=== PATIENT | female | born 1995 | race Two or more races ===

== ENCOUNTER 2016-11-29 11:20 | Emergency (ER) | payer OTHER ==
[2016-11-29] MEDS: ONDANSETRON ODT 4 MG TAB.RAPDIS PO ONE (12:00)
[2016-11-29] MEDS: IV NORMAL SALINE 1,000ML 1,000 ML IV SCH (12:17)
[2016-11-29] MEDS: ONDANSETRON PF 4 MG/2 ML VIAL. IV ONE (12:18)
[2016-11-29] MEDS: FAMOTIDINE 20 MG/2 ML VIAL IVP ONE (12:20)
[2016-11-29 12:27] LABS: BASO # 0.1 x10^3/uL (0.0-0.2); BASO % 1 % (0-3); EOS % 0 % (0-3); HEMATOCRIT 38.9 % (36.0-47.0); HEMOGLOBIN 12.5 g/dL (12.0-15.5); LYMPH # 2.5 x10^3/uL (1.0-4.8); LYMPH % 23 % (24-48); MEAN CORPUSCULAR HEMOGLOBIN 23 pg (25-35); MEAN CORPUSCULAR HGB CONC 32 g/dL (31-37); MEAN CORPUSCULAR VOLUME 72 fL (79-100); MONO # 0.7 x10^3/uL (0.0-1.1); MONO % 6 % (0-9); NEUT # 7.7 x10^3uL (1.8-7.7); NEUT % 71 % (31-73); PLATELET COUNT 378 x10^3/uL (140-400); RED BLOOD COUNT 5.39 x10^6/uL (3.50-5.40); RED CELL DISTRIBUTION WIDTH 16.9 % (11.5-14.5); WHITE BLOOD COUNT 10.9 x10^3/uL (4.0-11.0)
[2016-11-29 12:41] LABS: ALBUMIN 3.8 g/dL (3.4-5.0); ALBUMIN/GLOBULIN RATIO 0.9 (1.0-1.7); CALCIUM 9.1 mg/dL (8.5-10.1); CREATININE 0.6 mg/dL (0.6-1.0); GFR 127.5; POTASSIUM 3.5 mmol/L (3.5-5.1); TOTAL BILIRUBIN 0.4 mg/dL (0.2-1.0); TOTAL PROTEIN 7.9 g/dL (6.4-8.2)
--- NOTE | 2016-11-29 12:57 | PHYS DOC ---
General Chief Complaint: NAUSEA/VOMITING/DIARRHEA Stated Complaint: NAUSEA/DIZZINESS Time Seen by MD: 11:28 Source: patient Exam Limitations: no limitations Problems: History of Present Illness Initial Comments Pt is 21/F to ED c/o n/v. Pt states she was diagnosed last week, uncertain LMP. Pt is / monogamous, nonsmoker and taking vitamins. Pt states she has had n/v off and on past week, states this am PO intolerance with headache and dizziness when up and active. No prearrival treatment, no vaginal bleeding/ discharge, no low abdominal pain or flank pain, no contractions. 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: no pertinent TOP KNITTER history Para: 0 : 1 LMP (Females 10-50): Social History Smoker: non-smoker Alcohol: none Drugs: none Review of Systems Constitutional: denies chills, denies diaphoresis, denies fever, malaise Respiratory: denies cough, denies shortness of breath Cardiovascular: denies chest pain, denies palpitations Gastrointestinal: see HPI Genitourinary: see HPIdenies dysuria, denies frequency, denies hematuria Musculoskeletal: denies back pain, denies joint swelling, denies neck pain Psychiatric/Neurological: see HPI Hematologic/Lymphatic: denies blood clots, denies easy bleeding, denies easy bruising Physical Exam General Appearance: WD/WN, no apparent distress Eyes: bilateral eye EOMI, bilateral eye PERRL, bilateral eye normal inspection Ear, Nose, Throat: hearing grossly normal, normal ENT inspection (mildly dry membranes), normal pharynx Neck: non-tender, supple Respiratory: normal breath sounds, no respiratory distress Cardiovascular: normal peripheral pulses, regular rate, rhythm Gastrointestinal: soft (diffusely TTP no r/g/mass, BS nl) Rectal: deferred Back: no CVA tenderness, no vertebral tenderness Extremities: non-tender, normal inspection, no pedal edema Neurologic/Psychiatric: skin washer II-XII nml as tested, no motor/sensory deficits, alert, normal mood/affect, oriented x 3 Skin: normal color, warm/dry Orders, Labs, Meds reassuring workup in ED N/V resolved with zofran, feels much better with 1L NS IV. She expressed agreement/understanding with treatment plan. Departure Time of Disposition: 13:09 Disposition: 01 HOME, SELF-CARE Diagnosis: Hyperemesis Gravidarium Condition: IMPROVED Patient Instructions: ABCs of , Diet - Hyperemesis Gravidarum, Hyperemesis Gravidarum, Medicines During Additional Instructions: Please review the patient education materials given to you by ED staff. Aggressive hydration with gatorade, water. OTC pepcid as needed. Continue vitamins. Work excuse today. Rx: zofran odt Follow up with your doctor next week. Return to ED with new or changing symptoms. SUSAN SALDIVAR DO Nov 29, 2016 12:57
[2016-11-29] MEDS ORDERED: ONDA4TAB10 PO (13:13)
[2016-11-29 13:32] VITALS: BP 126/68
[2016-11-29 14:11] LABS: BILIRUBIN,URINE NEG (NEG); CLARITY,URINE CLEAR; COLOR,URINE YELLOW; GLUCOSE,URINE NEG (NEG); NITRITE,URINE NEG (NEG); UROBILINOGEN,URINE 0.2 mg/dL (0.2 mg/dL)
== END 2016-11-29 13:38 | disposition home or self-care (01) ==
LOC: ER 11:20
DX: O21.0 Mild hyperemesis gravidarum (principal); J45.909 Unspecified asthma, uncomplicated; Z3A.00 Weeks of gestation of pregnancy not specified
CPT/HCPCS: 36415; 80053; 81003; 83690; 84702; 85027; 96361; 96374; 96375; 99284; J2405; S0028; J7030

== ENCOUNTER 2016-12-01 13:04 | Emergency (ER) | payer OTHER ==
[~2016-12-01 13:04] MED LIST: ONDA4TAB10 PO
[2016-12-01 13:05] VITALS: BP 117/73
--- NOTE | 2016-12-01 14:20 | ED.ADGEN ---
Past History Past Medical History: Asthma, Other Past Surgical History: Appendectomy Alcohol Use: None Drug Use: None Adult General HPI HPI Patient is a 21-year-old female presents emergency department complaining of diffuse abdominal pain and is been intermittent. She describes it as an "ache " and has been ongoing for at least several days. She believes that her last menstrual period was August 30. She has not had a visit with her OB doctor yet. She was seen here 2 days ago for nausea and vomiting. She has taken Tylenol for pain but reports is not doing anything. The Zofran she received has helped with her nausea and vomiting. Review of Systems Review of Systems Constitutional: Denies fever or chills [] Eyes: Denies change in visual acuity, redness, or eye pain [] HENT: Denies nasal congestion or sore throat [] Respiratory: Denies cough or shortness of breath [] Cardiovascular: No additional information not addressed in HPI [] GI: Denies abdominal pain, nausea, vomiting, bloody stools or diarrhea [] : Denies dysuria or hematuria [] Musculoskeletal: Denies back pain or joint pain [] Integument: Denies rash or skin lesions [] Neurologic: Denies headache, focal weakness or sensory changes [] Endocrine: Denies polyuria or polydipsia [] Allergies Allergies Allergies Coded Allergies Type Severity Reaction Last Updated Verified No Known Drug Allergies 11/29/16 No Physical Exam Physical Exam Constitutional: Well developed, well nourished, no acute distress, non-toxic appearance. [] HENT: Normocephalic, atraumatic, bilateral external ears normal, oropharynx moist, no oral exudates, nose normal. [] Eyes: PERRLA, EOMI, conjunctiva normal, no discharge. [] Neck: Normal range of motion, no tenderness, supple, no stridor. [] Cardiovascular:Heart rate regular rhythm, no murmur [] Lungs & Thorax: Bilateral breath sounds clear to auscultation [] Abdomen: Bowel sounds normal, soft, no tenderness, no masses, no pulsatile masses. [] Skin: Warm, dry, no erythema, no rash. [] Back: No tenderness, no CVA tenderness. [] Extremities: No tenderness, no cyanosis, no clubbing, ROM intact, no edema. [] Neurologic: Alert and oriented X 3, normal motor function, normal sensory function, no focal deficits noted. [] Psychologic: Affect normal, judgement normal, mood normal. [] Current Patient Data Vital Signs Vital Signs Date Time Temp Pulse Resp B/P Pulse Ox O2 Delivery O2 Flow Rate FiO2 12/01/16 13:05 99.0 12 20 98 Room Air EKG EKG [] Radiology/Procedures Radiology/Procedures Indication . Intermittent abdominal pain. Early obstetrical ultrasound examination was performed. No prior imaging is available. Initially transabdominal scans were obtained. Initial transabdominal scans were supplemented with transvaginal scans. The uterus measures approximately 8.5 x 8 x 6.2 cm. There is a single, viable, IUP. heart rate 159 was documented. The crown-rump length of 2.9 cm is compatible with a gestational age of approximately 19 weeks 5 days. By sonographic analysis the expected date of confinement is 07/01/2017. Both ovaries are identified and appear unremarkable IMPRESSION: Single, viable, IUP of approximately 9 weeks 5 days gestation DICTATED AND SIGNED BY: YARY MARTINEZ MD DATE: 12/01/16 1538 CC: BELEN RUIZ; DICK QUINTANA MD ~[] Course & Med Decision Making Course & Med Decision Making Pertinent Labs and Imaging studies reviewed. (See chart for details) Reassuring workup here in emergency department today. Patient was instructed to continue with her Zofran and Pepcid. She is to follow-up with her OB doctor as scheduled in 4 days. She will of course return emergency department sooner she develops new or worsening symptoms. [] Final Impression Final Impression Abdominal pain in [] Problems: Dragon Disclaimer Dragon Disclaimer This electronic medical record was generated, in whole or in part, using a voice recognition dictation system. DICK QUINTANA MD Dec 01, 2016 14:20
--- NOTE | 2016-12-01 15:42 | RAD ---
Indication . Intermittent abdominal pain. Early obstetrical ultrasound examination was performed. No prior imaging is available. Initially transabdominal scans were obtained. Initial transabdominal scans were supplemented with transvaginal scans. The uterus measures approximately 8.5 x 8 x 6.2 cm. There is a single, viable, IUP. heart rate 159 was documented. The crown-rump length of 2.9 cm is compatible with a gestational age of approximately 19 weeks 5 days. By sonographic analysis the expected date of confinement is 07/01/2017. Both ovaries are identified and appear unremarkable IMPRESSION: Single, viable, IUP of approximately 9 weeks 5 days gestation
== END 2016-12-01 16:00 | disposition home or self-care (01) ==
LOC: ER 13:04
DX: O26.891 Other specified pregnancy related conditions, first trimester (principal); R10.84 Generalized abdominal pain; J45.909 Unspecified asthma, uncomplicated; Z3A.09 9 weeks gestation of pregnancy
CPT/HCPCS: 76801; 76817; 99284-25

== ENCOUNTER 2016-12-21 12:44 | Emergency (ER) | payer OTHER ==
[~2016-12-21] VITALS: Ht 160 cm; Wt 80.3 kg
[2016-12-21] MEDS ORDERED: IV NORMAL SALINE 1,000ML 1,000 ML IV SCH ×2 (13:31→14:18)
[2016-12-21] MEDS ORDERED: ONDANSETRON PF 4 MG/2 ML VIAL. IV ONE (13:45)
[2016-12-21] MEDS ORDERED: FAMOTIDINE 20 MG/2 ML VIAL IVP ONE (13:45)
--- NOTE | 2016-12-21 13:45 | PHYS DOC ---
General Chief Complaint: ABDOMINAL PAIN IN Stated Complaint: ABD PAIN Time Seen by MD: 13:03 Source: patient, old records Exam Limitations: no limitations Problems: History of Present Illness Initial Comments Pt is 21/F to ED c/o abdominal pain. Pt is , LMP 08/30 12 wks gestation c/o abdominal pain. She states that this morning she had some emesis (has rx for zofran hyperemesis gravidarium) and developed abdominal pain. Pain located anterior abdomen from epigastrium to suprapubic, worse with activation of abdominal muscles improved with rest. No focality of pain or relation to type/timing of PO intake. Sx described as severe/achy, but improving here in ED. Pt had normal US here 12/01 (pt seen here 11/30 hyperemesis, 12/01 abd pain) and saw her [employer] Dr Rivka Boone in [place], [place] yesterday. Taking prenatals, no tobacco, no vaginal discharge/ bleeding/flank pain/urinary sx/fever/chills/trauma/travel/bad food exposure. No diarrhea/constipation. Pt is requesting pain medication. FHT 154 in ED. ED VS: 98.6, 83, 120/66, 98% RA Pt abdominal exam wnl (see PE documentation), normal VS and FHT. I advised pt that no opiates would be prescribed, tylenol offered. No indication for US, I advised pt we could check UA/CBC/CMP to r/o severe infection/electrolyte abnormality/HELPP, and IVF could be administered. Pt appeared upset, but did agree to stay. 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 SENIOR PHARMACY TECHNICIAN history Para: 0 : 1 LMP (Females 10-50): (LMP 08/30 estimated 12 wks gestation) Social History Smoker: non-smoker Alcohol: none Drugs: none Review of Systems Constitutional: denies chills, denies diaphoresis, denies fever, denies malaise Respiratory: denies cough, denies shortness of breath, denies wheezing Cardiovascular: denies chest pain, denies edema, denies palpitations, denies syncope Gastrointestinal: see HPI abdominal paindenies constipation, denies diarrhea, nausea vomiting Genitourinary: denies dysuria, denies frequency, denies hematuria Musculoskeletal: denies back pain, denies joint swelling, denies neck pain Psychiatric/Neurological: denies headache, denies numbness, denies paresthesia Hematologic/Lymphatic: denies blood clots, denies easy bleeding, denies easy bruising Physical Exam General Appearance: WD/WN, no apparent distress Eyes: bilateral eye EOMI, bilateral eye PERRL, bilateral eye normal inspection Ear, Nose, Throat: hearing grossly normal, normal ENT inspection (mildly dry membranes), normal pharynx Neck: non-tender, supple Respiratory: normal breath sounds, no respiratory distress Cardiovascular: normal peripheral pulses, regular rate, rhythm Gastrointestinal: soft (gravid consistent with dates, soft, nontender BS normal ) Rectal: deferred Back: no CVA tenderness, no vertebral tenderness Extremities: non-tender, normal inspection, no pedal edema Neurologic/Psychiatric: chairman ceo II-XII nml as tested, no motor/sensory deficits, alert, normal mood/affect, oriented x 3 Skin: normal color, warm/dry Orders, Labs, Meds Mild leukocytosis otherwise labs unremarkable. 1513: Time in department greater than two hours, pt just submitted urine specimen. Pt has prolonged ED course due to laboratory delay. 1607: UA now resulted, no acute infection +SE contamination/ketones Departure Time of Disposition: 16:02 Disposition: 01 HOME, SELF-CARE Diagnosis: abdominal pain in Condition: GOOD Patient Instructions: Abdominal Pain During , [id number], Medicines During Additional Instructions: Aggressive hydration with gatorade, water. Continue vitamins. See handout re: safe OTC medications during . OTC tylenol/pepcid as needed. Follow up with Dr Boone as scheduled. Call her office first with new nonemergent complaints for guidance. Return to ED with new or changing symptoms. SUSAN SALDIVAR DO Dec 21, 2016 13:45
[2016-12-21 13:47] LABS: BASO % 0 % (0-3); EOS % 0 % (0-3); HEMATOCRIT 38.2 % (36.0-47.0); HEMOGLOBIN 12.1 g/dL (12.0-15.5); LYMPH # 1.7 x10^3/uL (1.0-4.8); LYMPH % 11 % (24-48); MEAN CORPUSCULAR HEMOGLOBIN 23 pg (25-35); MEAN CORPUSCULAR HGB CONC 32 g/dL (31-37); MEAN CORPUSCULAR VOLUME 73 fL (79-100); MONO # 0.7 x10^3/uL (0.0-1.1); MONO % 4 % (0-9); NEUT # 12.8 x10^3uL (1.8-7.7); NEUT % 84 % (31-73); PLATELET COUNT 309 x10^3/uL (140-400); RED BLOOD COUNT 5.21 x10^6/uL (3.50-5.40); RED CELL DISTRIBUTION WIDTH 17.4 % (11.5-14.5); WHITE BLOOD COUNT 15.1 x10^3/uL (4.0-11.0)
[2016-12-21] MEDS ORDERED: ACETAMINOPHEN 500 MG TABLET PO ONE (14:00)
[2016-12-21 14:01] LABS: ALBUMIN 3.3 g/dL (3.4-5.0); ALBUMIN/GLOBULIN RATIO 0.9 (1.0-1.7); CALCIUM 8.9 mg/dL (8.5-10.1); CREATININE 0.5 mg/dL (0.6-1.0); GFR 157.3; TOTAL BILIRUBIN 0.3 mg/dL (0.2-1.0); TOTAL PROTEIN 7.1 g/dL (6.4-8.2)
[2016-12-21 14:39] LABS: % BANDS 0 % (0-9); % BASOS 0 % (0-3); % EOS 1 % (0-5); % LYMPHS 14 % (24-48); % MONOS 4 % (0-10); % SEGS 81 % (35-66); ANISOCYTOSIS PRESENT; HYPOCHROMIA PRESENT; MICROCYTOSIS PRESENT; PLT ESTIMATE ADEQUATE (ADEQUATE)
[2016-12-21 14:40] LABS: TOXIC VACUOLATION PRESENT
--- NOTE | 2016-12-21 15:19 | ACF ---
Admission Criteria Forms ABDOMINAL PAIN Clinical Indications for Admission to Inpatient Care (Place 'X' for any and all applicable criteria): Admission is indicated for ANY ONE of the following(1)(2)(3)(4)(5): [x]I. Inpatient admission required rather than observation care (Also use Abdominal Pain: Observation Care, as appropriate) because of ANY ONE of the following: [ ]a) Severe pain requiring acute inpatient management [x]b) Identification of etiology/finding that requires inpatient care (eg, aortic dissection, free air) [ ]c) Absent bowel sounds with complete ileus(6) [ ]d) Suspected toxic megacolon [ ]e) Severe electrolyte abnormalities requiring inpatient care [ ]f) High fever or infection requiring inpatient admission as indicated by ANY ONE of following(7)(8): [ ] i) Appropriate outpatient or observational care antimicrobial treatment unavailable, not effective, or not feasible [ ] ii) Documented bacteremia [ ] iii) Temperature > 104.9 degrees F (oral) [ ] iv) T >103.1 F (oral) or < 96.8 F(rectal) that does not respond to all emergency treatment measures [ ]g) Signs of intestinal obstruction [B] [ ]h) Hemodynamic instability [ ]i) IV fluid to replace significant ongoing losses (greater than 3 L/m2 per day) (12)(13) [ ]j) Percutaneous or open drainage (eg, abscess, biliary tract ) procedures [ ]k) Parenteral nutrition regimen that must be implemented on inpatient basis [ ]l) Other condition,treatment or monitoring requiring inpatient admission. [ ]II. Peritoneal signs present [ ]III. Surgery needed that cannot be performed on an ambulatory basis. [ ]IV. Evaluation requires patient to not eat or drink for extended period ( eg, more than 24 hours). [ ]V. Contraindications and/or Inappropriate clinical situations for Observational Care in patients with abdominal pain, when ANY ONE of the following is required: [ ]a) Thorough evaluation is required to prevent catastrophic events due to delays in diagnosing (e.g.Mesenteric ischemia) 1,3 [ ]b) Patient with severe pathology or with chronic symptoms unlikely to improve in the ED stay (3) [ ]. General contraindications and/or Inappropriate clinical situations for Observational Care in patients with abdominal pain, when ANY ONE of the following is required: [ ]a) Prediction of prolongation of LOS based on ANY ONE of the following may be considered as a contraindication for observational care 2, 3, 4, 5, 6, 7, 8, 9, 10, 11 [ ]i) Age > 65 yrs. [ ]ii) Patient arriving by ambulance [ ]iii) Patient with high acuity [ ]iv) Patient requiring vital sign monitoring [ ]v) Patient on IV medication [ ]b) Systolic blood pressures 180mmHg 3,12 [ ]c) Patient with altered mental status including delirium and other alteration of consciousness, (3) [ ]d) Patient whose discharge disposition will be to a longterm home or rehabilitation home should not be managed in Emergency Department Observation Unit. CMS rule requires 3 days hospital stay before such placement.3,13 [ ]e) Patient with failure to thrive due to broad array of etiologies 3,16,17 [ ]f) Inability to ambulate 3,14 Extended stay beyond goal length of stay may be needed for(2)(3): [ ]a) Persistent abdominal pain with suspected intra-abdominal process [ ]b) Diagnosed condition requiring continued stay (e.g., pancreatitis, complicated diverticulitis) [ ]c) Surgery (e.g., colectomy) The original [id number] content created by [employer] has been revised. The portions of the content which have been revised are identified through the use of italic text or in bold, and [facility] has neither reviewed nor approved the modified material.All other unmodified content is copyright [id number]. Please see references footnoted in the original [id number] edition 2016 Admission Criteria Met?: Yes JAYY MADSEN Dec 21, 2016 15:19
[2016-12-21 16:02] LABS: BACTERIA,URINE FEW /HPF (0-FEW); BILIRUBIN,URINE NEG (NEG); CLARITY,URINE HAZY; COLOR,URINE YELLOW; GLUCOSE,URINE NEG (NEG); NITRITE,URINE NEG (NEG); RBC,URINE OCC /HPF (0-2); SQUAMOUS EPITHELIAL CELL,UR MOD /LPF; UROBILINOGEN,URINE 1 mg/dL (0.2 mg/dL)
[2016-12-21 16:04] LABS: HYALINE CASTS, URINE FEW /HPF
[2016-12-21 16:27] VITALS: BP 118/51
== END 2016-12-21 16:30 | disposition home or self-care (01) ==
LOC: ER 12:44
DX: O26.891 Other specified pregnancy related conditions, first trimester (principal); R10.13 Epigastric pain; O21.9 Vomiting of pregnancy, unspecified; J45.909 Unspecified asthma, uncomplicated; Z90.49 Acquired absence of other specified parts of digestive tract; Z3A.12 12 weeks gestation of pregnancy
CPT/HCPCS: 36415; 80053; 81001; 83690; 85007; 85027; 87086; 96361; 96374; 96375; 99285; J2405; S0028; J7030

== ENCOUNTER 2017-04-14 18:31 | Emergency (ER) | payer OTHER ==
[~2017-04-14] VITALS: Ht 160 cm; Wt 84.2 kg
[2017-04-14 18:40] VITALS: BP 122/72
[2017-04-14] MEDS ORDERED: CEPH-264 PO (18:56)
[2017-04-14] MEDS ORDERED: ACET325T9 PO (18:56)
--- NOTE | 2017-04-14 18:57 | PHYS DOC ---
Past History Past Medical History: Asthma, Other Past Surgical History: Appendectomy Alcohol Use: None Drug Use: None Adult General Chief Complaint Chief Complaint: ear infection HPI HPI Patient is a pleasant 21-year-old female who is approximately 29 weeks by LMP who presents with a redness and localized swelling to the external pinna of the left ear. She noted she not felt well slight mild headache on that left side of her face here with localized redness swelling to the location of her prior ear ring placement point. Her fever is only been up to 99.9 she describes the pain as achy in her ear. She denies any drainage denies any trauma to the ear. Symptoms all began she noticed earlier in the day. Pain is worsened with direct pressure over the ear and movement of the ear. Addict is described as throbbing or spicy foods on onset with no neck stiffness or hearing loss. Review of Systems Review of Systems Constitutional: Subjective fevers and chills. Eyes: Denies change in visual acuity, redness, or eye pain [] HENT: Denies nasal congestion or sore throat [] Respiratory: Denies cough or shortness of breath [] Cardiovascular: No additional information not addressed in HPI [] GI: Denies abdominal pain, nausea, vomiting, bloody stools or diarrhea [] : Denies dysuria or hematuria [] Musculoskeletal: Denies back pain or joint pain [] Integument: Denies rash or skin lesions [] Neurologic: Mild throbbing headache on the left. No focal weakness or sensory changes. Endocrine: Denies polyuria or polydipsia [] Current Medications Current Medications Current Medications Medications (Trade) Dose Ordered Sig/[facility] Start Time Stop Time Status Last Admin Dose Admin Acetaminophen (Tylenol) 650 mg 1X ONCE 04/14/17 19:00 04/14/17 19:01 UNV Cephalexin HCl (Keflex) 500 mg 1X ONCE 04/14/17 19:00 04/14/17 19:01 UNV Allergies Allergies Allergies Coded Allergies Type Severity Reaction Last Updated Verified No Known Drug Allergies 11/29/16 No Physical Exam Physical Exam Patient's vital signs recorded on the chart within normal limits afebrile at this time at 98.1. Constitutional: Well developed, well nourished, no acute distress, non-toxic appearance. [] HENT: Normocephalic, atraumatic, oropharynx moist, no oral exudates, nose normal. Left ear lower pinna has a area of erythema without drainage minimal induration and soft tissue swelling. It is all on the point of the earring hole. [] Eyes: PERRLA, EOMI, conjunctiva normal, no discharge. [] Neck: Normal range of motion, no tenderness, supple, no stridor. [] Skin: Warm, dry, no erythema, no rash. [] Neurologic: Alert and oriented X 3 Psychologic: Affect normal, judgement normal, mood normal. [] EKG EKG [] Radiology/Procedures Radiology/Procedures [] Course & Med Decision Making Course & Med Decision Making Pertinent Labs and Imaging studies reviewed. (See chart for details) She presents 29 weeks with no complaints of the presents with a low-grade fever to 99.9 at home with a small cellulitis located of the left earlobe. There is duration with soft tissue swelling patient has no fluctuance there is no active evidence of abscess. There is no drainage from the wound itself. Given a dose of Keflex and Tylenol here in the emergency department and we'll be provided such treatment at discharge. [] Dragon Disclaimer Dragon Disclaimer This chart was dictated in whole or in part using Voice Recognition software in a busy, high-work load, and often noisy Emergency Department environment. It may contain unintended and wholly unrecognized errors or omissions. Departure Departure: Impression: Primary Impression: Cellulitis Disposition: 01 HOME, SELF-CARE Condition: STABLE Referrals: BELEN RUIZ (PCP) Patient Instructions: Cellulitis Additional Instructions: Please return for any new or increasing symptoms, fever greater than 102.2 despite treatment or if you have any questions or concerns. Scripts Acetaminophen (TYLENOL) 325 Mg Tablet 1-2 TAB PO QID, #30 TAB 2 Refills Prov: MARISA PRUITT MD 04/14/17 Cephalexin (KEFLEX) 500 Mg Capsule 500 MG PO QID for 10 Days, #40 CAP Prov: MARISA PRUITT MD 04/14/17 MARISA PRUITT MD Apr 14, 2017 18:56
[2017-04-14] MEDS ORDERED: ACETAMINOPHEN 325 MG TABLET PO ONE (19:15)
[2017-04-14] MEDS ORDERED: CEPHALEXIN 250 MG CAPSULE PO ONE (19:15)
== END 2017-04-14 19:20 | disposition home or self-care (01) ==
LOC: ER 18:31
DX: O26.893 Other specified pregnancy related conditions, third trimester (principal); H60.12 Cellulitis of left external ear; R51 Headache; O99.513 Diseases of the respiratory system complicating pregnancy, third trimester; J45.909 Unspecified asthma, uncomplicated; Z3A.29 29 weeks gestation of pregnancy
CPT/HCPCS: 99283

== ENCOUNTER 2017-08-15 21:05 | Emergency (ER) | payer OTHER ==
[~2017-08-15] VITALS: Ht 160 cm; Wt 81.6 kg
[~2017-08-15 21:05] MED LIST changes: +ACET325T9 PO; +CEPH-264 PO
[2017-08-15] MEDS ORDERED: IV NORMAL SALINE 1,000ML 1,000 ML IV ONE (22:15)
[2017-08-15] MEDS ORDERED: ONDANSETRON PF 4 MG/2 ML VIAL. IV ONE (22:30)
[2017-08-15] MEDS ORDERED: IOHEXOL 300 MG/ML 75 ML VIAL. IV ONE (22:30)
[2017-08-15 23:06] LABS: BASO % 0 % (0-3); EOS % 0 % (0-3); HEMATOCRIT 36.5 % (36.0-47.0); HEMOGLOBIN 11.6 g/dL (12.0-15.5); LYMPH % 23 % (24-48); MEAN CORPUSCULAR HEMOGLOBIN 22 pg (25-35); MEAN CORPUSCULAR HGB CONC 32 g/dL (31-37); MEAN CORPUSCULAR VOLUME 69 fL (79-100); MONO # 0.9 x10^3/uL (0.0-1.1); MONO % 7 % (0-9); NEUT % 70 % (31-73); PLATELET COUNT 385 x10^3/uL (140-400); RED BLOOD COUNT 5.27 x10^6/uL (3.50-5.40); RED CELL DISTRIBUTION WIDTH 19.3 % (11.5-14.5)
[2017-08-15 23:19] LABS: ALBUMIN 3.5 g/dL (3.4-5.0); CALCIUM 8.4 mg/dL (8.5-10.1); CREATININE 0.8 mg/dL (0.6-1.0); GFR 91.4; MAGNESIUM 1.9 mg/dL (1.8-2.4); POTASSIUM 3.2 mmol/L (3.5-5.1); TOTAL BILIRUBIN 0.4 mg/dL (0.2-1.0)
[2017-08-15 23:28] LABS: ANISOCYTOSIS SLIGHT; HYPOCHROMIA SLIGHT; MICROCYTOSIS MOD; PLT ESTIMATE ADEQUATE (ADEQUATE)
--- NOTE | 2017-08-15 23:39 | RAD ---
CT SCAN OF THE ABDOMEN AND PELVIS WITH IV CONTRAST. History: Left lower quadrant abdominal pain and nausea for 2 days and history of prior appendectomy and ulcerative colitis Comparison:None. Procedure: Contiguous axial images of the abdomen and pelvis were performed after the administration of 75 cc of Omni 300 IV contrast and without oral contrast. CT Abdomen with contrast: Findings: Liver: Unremarkable Spleen: Unremarkable Pancreas: Unremarkable Adrenal Glands: Unremarkable Kidneys: Unremarkable There are numerous small mesenteric lymph nodes bilaterally and there are a few mildly enlarged mesenteric lymph nodes in the right lower quadrant. There is no free air. There is no free fluid. The uterus is retroflexed. The endometrium measures 2.4 cm in thickness. There is evidence of prior appendectomy. Impression: 1. Mild mesenteric lymphadenopathy could be lymphadenitis. 2. Thickening of the endometrium of the uterus is nonspecific and likely incidental. End Impression CT Pelvis with Contrast: Findings: The urinary bladder appears normal. There is no free fluid. There is no lymphadenopathy. Impression: No acute findings. PQRS Compliance Statement: One or more of the following individualized dose reduction techniques were utilized for this examination: 1. Automated exposure control 2. Adjustment of the mA and/or kV according to patient size 3. Use of iterative reconstruction technique Electronically signed by: Isaac Martines III, MD (08/15/2017 11:36 PM) [facility]
[2017-08-16 00:26] LABS: BACTERIA,URINE 0 /HPF (0-FEW); BILIRUBIN,URINE NEG (NEG); CLARITY,URINE CLEAR; COLOR,URINE YELLOW; GLUCOSE,URINE NEG (NEG); NITRITE,URINE NEG (NEG); RBC,URINE 0 /HPF (0-2); SQUAMOUS EPITHELIAL CELL,UR MOD /LPF; UROBILINOGEN,URINE 0.2 mg/dL (0.2 mg/dL); WBC,URINE OCC /HPF (0-4)
[2017-08-16] MEDS ORDERED: POTASSIUM CHLORIDE 20 MEQ TABLET.ER. PO ONE (00:30)
[2017-08-16] MEDS ORDERED: KETOROLAC 30 MG/ML VIAL. IV ONE (00:30)
[2017-08-16] MEDS ORDERED: oxyCODONE/APAP 5/325 1 TAB TABLET PO ONE (00:30)
[2017-08-16] MEDS ORDERED: HYDR-971 PO (01:55)
[2017-08-16] MEDS ORDERED: ONDA4TAB10 SL (01:55)
--- NOTE | 2017-08-16 01:55 | PHYS DOC ---
Past History Past Medical History: Asthma, Depression Past Surgical History: Appendectomy Alcohol Use: None Drug Use: None Adult General Chief Complaint Chief Complaint: ABDOMINAL PAIN HPI HPI Patient is a 21-year-old female presenting to the emergency department for violation of generalized abdominal pain nausea and headache. Abdominal pain started today and is constant crampy and associated with nausea and no fevers chills vomiting diarrhea constipation dysuria hematuria or abnormal bleeding or discharge. Patient says that the headache is mostly frontal and started after the abdominal pain and headache and said that is mild compared to the abdominal pain. She is healthy takes no medications and denies any abdominal surgeries. Review of Systems Review of Systems Constitutional: Denies fever or chills [] Respiratory: Denies cough or shortness of breath [] Cardiovascular: No additional information not addressed in HPI [] GI: + abdominal pain, nausea. No vomiting, bloody stools or diarrhea [] : Denies dysuria or hematuria [] Musculoskeletal: Denies back pain or joint pain [] Integument: Denies rash or skin lesions [] Neurologic: + headache. No focal weakness or sensory changes [] All other systems were reviewed and found to be within normal limits, except as documented in this note. Current Medications Current Medications Current Medications Medications (Trade) Dose Ordered Sig/Silva Start Time Stop Time Status Last Admin Dose Admin Fentanyl Citrate (Fentanyl 2ml Vial) 75 mcg 1X ONCE 08/15/17 22:30 08/15/17 22:31 DC 08/15/17 22:45 75 MCG Iohexol (Omnipaque 300 Mg/ml) 75 ml 1X ONCE 08/15/17 22:30 08/15/17 22:31 DC 08/15/17 22:56 75 ML Ketorolac Tromethamine (Toradol) 30 mg 1X ONCE 08/16/17 00:30 08/16/17 01:17 DC 08/16/17 00:53 30 MG Ondansetron HCl (Zofran) 8 mg 1X ONCE 08/15/17 22:30 08/15/17 22:31 DC 08/15/17 22:30 8 MG Oxycodone/ Acetaminophen (Percocet 5/325) 2 tab 1X ONCE 08/16/17 00:30 08/16/17 01:17 DC 08/16/17 00:52 2 TAB Potassium Chloride (Klor-Con) 40 meq 1X ONCE 08/16/17 00:30 08/16/17 01:17 DC 08/16/17 00:51 40 MEQ Sodium Chloride 1,000 ml @ 1,000 mls/hr 1X ONCE 08/15/17 22:15 08/15/17 23:14 DC 08/15/17 22:30 1,000 MLS/HR Allergies Allergies Allergies Coded Allergies Type Severity Reaction Last Updated Verified No Known Drug Allergies 08/15/17 No Physical Exam Physical Exam Constitutional: Well developed, well nourished, no acute distress, non-toxic appearance. [] Cardiovascular:Heart rate regular rhythm, no murmur [] Lungs & Thorax: Bilateral breath sounds clear to auscultation [] Abdomen: Bowel sounds normal, soft, mild diffuse nonfocal tenderness, no rebound or guarding, no masses, no pulsatile masses. [] Skin: Warm, dry, no erythema, no rash. [] Back: No tenderness, no CVA tenderness. [] Extremities: No tenderness, no cyanosis, no clubbing, ROM intact, no edema. [] Neurologic: Alert and oriented X 3, normal motor function, normal sensory function, no focal deficits noted. [] Current Patient Data Vital Signs Vital Signs Date Time Temp Pulse Resp B/P (MAP) Pulse Ox O2 Delivery O2 Flow Rate FiO2 08/15/17 22:00 98.1 99 20 Room Air Lab Results Laboratory Tests Test 08/15/17 22:43 08/15/17 23:59 White Blood Count 13.0 x10^3/uL (4.0-11.0) H Red Blood Count 5.27 x10^6/uL (3.50-5.40) Hemoglobin 11.6 g/dL (12.0-15.5) L Hematocrit 36.5 % (36.0-47.0) Mean Corpuscular Volume 69 fL (79-100) L Mean Corpuscular Hemoglobin 22 pg (25-35) L Mean Corpuscular Hemoglobin Concent 32 g/dL (31-37) Red Cell Distribution Width 19.3 % (11.5-14.5) H Platelet Count 385 x10^3/uL (140-400) Neutrophils (%) (Auto) 70 % (31-73) Lymphocytes (%) (Auto) 23 % (24-48) L Monocytes (%) (Auto) 7 % (0-9) Eosinophils (%) (Auto) 0 % (0-3) Basophils (%) (Auto) 0 % (0-3) Neutrophils # (Auto) 9.0 x10^3uL (1.8-7.7) H Lymphocytes # (Auto) 3.0 x10^3/uL (1.0-4.8) Monocytes # (Auto) 0.9 x10^3/uL (0.0-1.1) Eosinophils # (Auto) 0.0 x10^3/uL (0.0-0.7) Basophils # (Auto) 0.0 x10^3/uL (0.0-0.2) Platelet Estimate Adequate (ADEQUATE) Hypochromasia Slight Anisocytosis Slight Microcytosis Mod Sodium Level 140 mmol/L (136-145) Potassium Level 3.2 mmol/L (3.5-5.1) L Chloride Level 104 mmol/L (98-107) Carbon Dioxide Level 24 mmol/L (21-32) Anion Gap 12 (6-14) Blood Urea Nitrogen 11 mg/dL (7-20) Creatinine 0.8 mg/dL (0.6-1.0) Estimated GFR (Cockcroft-Gault) 91.4 BUN/Creatinine Ratio 14 (6-20) Glucose Level 88 mg/dL (70-99) Calcium Level 8.4 mg/dL (8.5-10.1) L Magnesium Level 1.9 mg/dL (1.8-2.4) Total Bilirubin 0.4 mg/dL (0.2-1.0) Aspartate Amino Transferase (AST) 18 U/L (15-37) Alanine Aminotransferase (ALT) 33 U/L (14-59) Alkaline Phosphatase 113 U/L (46-116) Total Protein 7.0 g/dL (6.4-8.2) Albumin 3.5 g/dL (3.4-5.0) Albumin/Globulin Ratio 1.0 (1.0-1.7) Lipase 110 U/L (73-393) Urine Collection Type Unknown Urine Color Yellow Urine Clarity Clear Urine pH 5.0 Urine Specific [place] <=1.005 Urine Protein Neg (NEG-TRACE) Urine Glucose (UA) Neg mg/dL (NEG) Urine Ketones (Stick) Neg mg/dL (NEG) Urine Blood Neg (NEG) Urine Nitrite Neg (NEG) Urine Bilirubin Neg (NEG) Urine Urobilinogen Dipstick 0.2 mg/dL (0.2 mg/dL) Urine Leukocyte Esterase Neg (NEG) Urine RBC 0 /HPF (0-2) Urine WBC Occ /HPF (0-4) Urine Squamous Epithelial Cells Mod /LPF Urine Bacteria 0 /HPF (0-FEW) EKG EKG [] Radiology/Procedures Radiology/Procedures CT SCAN OF THE ABDOMEN AND PELVIS WITH IV CONTRAST. History: Left lower quadrant abdominal pain and nausea for 2 days and history of prior appendectomy and ulcerative colitis Comparison:None. Procedure: Contiguous axial images of the abdomen and pelvis were performed after the administration of 75 cc of Omni 300 IV contrast and without oral contrast. CT Abdomen with contrast: Findings: Liver: Unremarkable Spleen: Unremarkable Pancreas: Unremarkable Adrenal Glands: Unremarkable Kidneys: Unremarkable There are numerous small mesenteric lymph nodes bilaterally and there are a few mildly enlarged mesenteric lymph nodes in the right lower quadrant. There is no free air. There is no free fluid. The uterus is retroflexed. The endometrium measures 2.4 cm in thickness. There is evidence of prior appendectomy. Impression: 1. Mild mesenteric lymphadenopathy could be lymphadenitis. 2. Thickening of the endometrium of the uterus is nonspecific and likely incidental. End Impression CT Pelvis with Contrast: Findings: The urinary bladder appears normal. There is no free fluid. There is no lymphadenopathy. Impression: No acute findings. PQRS Compliance Statement: One or more of the following individualized dose reduction techniques were utilized for this examination: 1. Automated exposure control 2. Adjustment of the mA and/or kV according to patient size 3. Use of iterative reconstruction technique Electronically signed by: Andre Martines III, MD (08/15/2017 11:36 PM) [facility] DICTATED AND SIGNED BY: ANDRE MARTINES III, MD DATE: 08/15/17 9698 Course & Med Decision Making Course & Med Decision Making Patient with diffuse abdominal tenderness likely related to a viral syndrome. She has no adnexal tenderness and she has no vomiting and she appears well and her symptoms are resolved after treatment in the emergency department. She appears to have mesenteric adenitis and some other incidental findings were discussed with the patient at length. Patient is drinking fluids and feeling better and requesting to go home. Given patient appears well with normal vital signs benign physical exam and workup she'll be discharged in stable condition told to drink plenty of fluids take ibuprofen for pain and [place] for breakthrough pain and follow with primary care provider within 24-48 hours for reassessment come back to the ED sooner with worsening pain fevers vomiting or other general concerns. Patient aware and agreeable with plan for discharge and verbalized understanding of the above instructions. Dragon Disclaimer Dragon Disclaimer This electronic medical record was generated, in whole or in part, using a voice recognition dictation system. Departure Departure: Impression: Primary Impression: Abdominal pain Additional Impressions: Mesenteric adenitis Leukocytosis Hypokalemia Disposition: HOME, SELF-CARE Condition: STABLE Referrals: BELEN RUIZ (PCP) Patient Instructions: Mesenteric Adenitis Additional Instructions: TAKE 400MG OF IBUPROFEN EVERY 6 HOURS AND THE NORCO FOR BREAKTHROUGH PAIN. COME BACK WITH WORSENING PAIN, FEVERS, VOMITING, OR OTHER GENERAL CONCERNS. THANK YOU! Scripts Ondansetron (ZOFRAN ODT) 4 Mg Tab.rapdis 1 TAB SL Q8HRS, #10 TAB Prov: DICK PAYNE DO 08/16/17 Hydrocodone Bit/Acetaminophen (NORCO 5-325 TABLET) 1 Each Tablet 1 TAB PO PRN Q6HRS Y for PAIN, #14 TAB 0 Refills Prov: DICK PAYNE DO 08/16/17 Problem Qualifiers Primary Impression: Abdominal pain Abdominal location: generalized Qualified Codes: R10.84 - Generalized abdominal pain DICK PAYNE DO Aug 16, 2017 01:55
[2017-08-16 02:00] VITALS: BP 122/61
== END 2017-08-16 02:00 | disposition home or self-care (01) ==
LOC: ER 21:05
DX: I88.0 Nonspecific mesenteric lymphadenitis (principal); R10.84 Generalized abdominal pain; D72.829 Elevated white blood cell count, unspecified; E87.6 Hypokalemia; J45.909 Unspecified asthma, uncomplicated; Z90.49 Acquired absence of other specified parts of digestive tract
CPT/HCPCS: 36415; 74177; 80053; 81001; 83690; 83735; 85025; 96361; 96374; 96375; 99285; J1885; J2405; J3010; Q9967; J7030

== ENCOUNTER 2017-09-18 20:37 | Emergency (ER) | payer OTHER ==
[~2017-09-18] VITALS: Ht 162.6 cm; Wt 86.2 kg
[~2017-09-18 20:37] MED LIST changes: +HYDR-971 PO; +ONDA4TAB10 SL
--- NOTE | 2017-09-18 20:46 | ED.ADGEN ---
Past History Past Medical History: Asthma, Depression Past Surgical History: Appendectomy Alcohol Use: None Drug Use: None Adult General Chief Complaint Chief Complaint " I have been dizzy and have been having some headaches. HPI HPI Patient is a 21 year old female who presents with above hx and complaints. Patient has facial pain as well as frontal headaches. Patient denies any trauma. Patient denies any travel. Patient denies any specific ill contacts. Patient has has some subjective fever and chills. Patient denies any history of immunosuppression. Patient follows with Dr. Barber. Review of Systems Review of Systems Constitutional: Subjective fever or chills [] Eyes: Denies change in visual acuity, redness, or eye pain [] HENT: History of nasal congestion sore throat [] Respiratory: Denies cough or shortness of breath [] Cardiovascular: No additional information not addressed in HPI [] GI: Denies abdominal pain, nausea, vomiting, bloody stools or diarrhea [] : Denies dysuria or hematuria [] Musculoskeletal: Denies back pain or joint pain [] Integument: Denies rash or skin lesions [] Neurologic: He of headache, denies focal weakness or sensory changes []history of dizziness Endocrine: Denies polyuria or polydipsia [] All other systems were reviewed and found to be within normal limits, except as documented in this note. Family History Family History Multiple complex medical problems cardiac diabetes cancers hypertension Current Medications Current Medications Current Medications Medications (Trade) Dose Ordered Sig/Silva Start Time Stop Time Status Last Admin Dose Admin Ceftriaxone Sodium 1 gm/ Sodium Chloride 50 ml @ 100 mls/hr 1X ONCE 09/18/17 23:15 09/18/17 23:44 UNV Ceftriaxone Sodium (Rocephin) 1 gm 1X ONCE 09/18/17 23:30 09/18/17 23:31 DC 09/18/17 23:47 1 GM Sodium Chloride 1,000 ml @ 1,000 mls/hr Q1H 09/18/17 21:05 09/18/17 22:04 DC 09/18/17 22:28 1,000 MLS/HR Allergies Allergies Allergies Coded Allergies Type Severity Reaction Last Updated Verified No Known Drug Allergies 08/15/17 No Physical Exam Physical Exam Constitutional: Well developed, well nourished, no acute distress, non-toxic appearance. [] HENT: Normocephalic, atraumatic, bilateral external ears normal, oropharynx moist, no oral exudates, nose injected turbinates and rhinorrhea. Maxillary tenderness on percussion. No temporal artery tenderness Eyes: PERRLA, EOMI, conjunctiva normal, no discharge. [] Neck: Normal range of motion, no tenderness, supple, no stridor. [] Cardiovascular:Heart rate regular rhythm, no murmur [] Lungs & Thorax: Bilateral breath sounds equal apex on Auscultation [] Abdomen: Bowel sounds normal, soft, no tenderness, no masses, no pulsatile masses. [] Skin: Warm, dry, no erythema, no rash. [] Back: No tenderness, no CVA tenderness. [] Extremities: No tenderness, no cyanosis, no clubbing, ROM intact, no edema. [] Neurologic: Alert and oriented X 3, normal motor function, normal sensory function, no focal deficits noted. [] Psychologic: Affect anxious, judgement normal, mood normal. [] Current Patient Data Vital Signs Vital Signs Date Time Temp Pulse Resp B/P (MAP) Pulse Ox O2 Delivery O2 Flow Rate FiO2 09/19/17 00:20 102 16 106/54 (71) 100 Room Air 09/18/17 21:45 98.3 Lab Results Laboratory Tests Test 09/18/17 21:40 White Blood Count 12.8 x10^3/uL (4.0-11.0) H Red Blood Count 5.99 x10^6/uL (3.50-5.40) H Hemoglobin 13.2 g/dL (12.0-15.5) Hematocrit 41.7 % (36.0-47.0) Mean Corpuscular Volume 70 fL (79-100) L Mean Corpuscular Hemoglobin 22 pg (25-35) L Mean Corpuscular Hemoglobin Concent 32 g/dL (31-37) Red Cell Distribution Width 16.2 % (11.5-14.5) H Platelet Count 416 x10^3/uL (140-400) H Neutrophils (%) (Auto) 54 % (31-73) Lymphocytes (%) (Auto) 39 % (24-48) Monocytes (%) (Auto) 7 % (0-9) Eosinophils (%) (Auto) 0 % (0-3) Basophils (%) (Auto) 1 % (0-3) Neutrophils # (Auto) 6.9 x10^3uL (1.8-7.7) Lymphocytes # (Auto) 4.9 x10^3/uL (1.0-4.8) H Monocytes # (Auto) 0.9 x10^3/uL (0.0-1.1) Eosinophils # (Auto) 0.0 x10^3/uL (0.0-0.7) Basophils # (Auto) 0.1 x10^3/uL (0.0-0.2) Platelet Estimate Increased (ADEQUATE) Hypochromasia Slight Microcytosis Slight Erythrocyte Sedimentation Rate 9 (0-25) Prothrombin Time 10.6 SEC (9.4-11.4) Prothrombin Time INR 1.0 (0.9-1.1) PTT 24 SEC (23-33) D-Dimer (Corrine) 0.40 mg/L (0.00-0.50) Urine Collection Type Unknown Urine Color Yellow Urine Clarity Clear Urine pH 5.0 Urine Specific [place] 1.025 Urine Protein Neg (NEG-TRACE) Urine Glucose (UA) Neg mg/dL (NEG) Urine Ketones (Stick) Trace mg/dL (NEG) Urine Blood Neg (NEG) Urine Nitrite Neg (NEG) Urine Bilirubin Neg (NEG) Urine Urobilinogen Dipstick 0.2 mg/dL (0.2 mg/dL) Urine Leukocyte Esterase Neg (NEG) Urine RBC 0 /HPF (0-2) Urine WBC 0 /HPF (0-4) Urine Squamous Epithelial Cells Occ /LPF Urine Bacteria 0 /HPF (0-FEW) Sodium Level 143 mmol/L (136-145) Potassium Level 3.7 mmol/L (3.5-5.1) Chloride Level 106 mmol/L (98-107) Carbon Dioxide Level 25 mmol/L (21-32) Anion Gap 12 (6-14) Blood Urea Nitrogen 15 mg/dL (7-20) Creatinine 0.8 mg/dL (0.6-1.0) Estimated GFR (Cockcroft-Gault) 91.4 Glucose Level 80 mg/dL (70-99) Calcium Level 9.3 mg/dL (8.5-10.1) Magnesium Level 2.1 mg/dL (1.8-2.4) Total Bilirubin 0.1 mg/dL (0.2-1.0) L Direct Bilirubin 0.1 mg/dL (0.0-0.2) Aspartate Amino Transferase (AST) 24 U/L (15-37) Alanine Aminotransferase (ALT) 48 U/L (14-59) Alkaline Phosphatase 121 U/L (46-116) H Creatine Kinase 57 U/L (26-192) Creatine Kinase MB (Mass) < 0.5 ng/mL (0.0-3.6) Creatine Kinase MB Relative Index 0.9 % (0-4) Troponin I Quantitative < 0.017 ng/mL (0-0.055) VR-Jul-G-Type Natriuretic Peptide 12 pg/mL (0-124) Total Protein 8.2 g/dL (6.4-8.2) Albumin 4.0 g/dL (3.4-5.0) Lipase 209 U/L (73-393) Urine Opiates Screen Neg (NEG) Urine Methadone Screen Neg (NEG) Urine Barbiturates Neg (NEG) Urine Phencyclidine Screen Neg (NEG) Urine Amphetamine/Methamphetamine Neg (NEG) Urine Benzodiazepines Screen Neg (NEG) Urine Cocaine Screen Neg (NEG) Urine Cannabinoids Screen Neg (NEG) Urine Ethyl Alcohol Neg (NEG) Influenza Type A (Rapid) Negative (NEGATIVE) Influenza Type B (Rapid) Negative (NEGATIVE) Group A Streptococcus Rapid Negative (NEGATIVE) EKG EKG My interpretation EKG shows a sinus rhythm at 96 bpm. No findings acute STEMI of contralateral changes.[] Radiology/Procedures Radiology/Procedures My interpretation of chest x-ray and CT shows no acute cardiopulmonary findings. CT of head shows no shift, mass, edema, bleed, or fracture. Patient does have findings of maxillary sinusitis. Course & Med Decision Making Course & Med Decision Making Pertinent Labs and Imaging studies reviewed. (See chart for details) Take Amoxicillin 500 tid, use flonase every night, normal saline rinses 4 x day. Over the counter tylenol and Ibuprofen for pain. Ferrous supplements supplements. Must follow up. [] Final Impression Final Impression 1. Maxillary Sinusitis 2. Leukocytosis 3. Microcytic Hypochromic Anemia 4. Dizziness 5. Hx of Migraines Problems: Dragon Disclaimer Dragon Disclaimer This electronic medical record was generated, in whole or in part, using a voice recognition dictation system. GUERITA HALL MD Sep 18, 2017 20:46
[2017-09-18] MEDS ORDERED: IV NORMAL SALINE 1,000ML 1,000 ML IV SCH (21:05)
[2017-09-18 22:21] LABS: BASO # 0.1 x10^3/uL (0.0-0.2); BASO % 1 % (0-3); EOS % 0 % (0-3); HEMATOCRIT 41.7 % (36.0-47.0); HEMOGLOBIN 13.2 g/dL (12.0-15.5); LYMPH # 4.9 x10^3/uL (1.0-4.8); LYMPH % 39 % (24-48); MEAN CORPUSCULAR HEMOGLOBIN 22 pg (25-35); MEAN CORPUSCULAR HGB CONC 32 g/dL (31-37); MEAN CORPUSCULAR VOLUME 70 fL (79-100); MONO # 0.9 x10^3/uL (0.0-1.1); MONO % 7 % (0-9); NEUT # 6.9 x10^3uL (1.8-7.7); NEUT % 54 % (31-73); PLATELET COUNT 416 x10^3/uL (140-400); RED BLOOD COUNT 5.99 x10^6/uL (3.50-5.40); RED CELL DISTRIBUTION WIDTH 16.2 % (11.5-14.5); WHITE BLOOD COUNT 12.8 x10^3/uL (4.0-11.0)
[2017-09-18 22:26] LABS: BARBITURATES NEG (NEG); BENZODIAZEPINES NEG (NEG); CANNABINOIDS NEG (NEG); COCAINE NEG (NEG); METHADONE NEG (NEG); OPIATES NEG (NEG); PHENCYCLIDINE NEG (NEG)
--- NOTE | 2017-09-18 22:26 | RAD ---
CT head without intravenous contrast History: Dizziness, migraines. Comparison: None. Technique: Axial images are obtained of the head from the skull base through the vertex without IV contrast. Exposure: One or more of the following individualized dose reduction techniques were utilized for this examination: 1. Automated exposure control 2. Adjustment of the mA and/or kV according to patient size 3. Use of iterative reconstruction technique Findings: The ventricles are appropriate in size, shape, and location for the patient's age. No obvious intracranial mass, mass-effect, midline shift, hemorrhage or obvious acute infarction is identified. Basilar cisterns are patent. Bone windows demonstrate no acute calvarial abnormality. The visualized paranasal sinuses appear clear. Impression: 1. No acute intracranial process. CT face without contrast Technique: CT of the face was performed without intravenous contrast. Axial, sagittal, and coronal reconstructions were obtained. Exposure: One or more of the following individualized dose reduction techniques were utilized for this examination: 1. Automated exposure control 2. Adjustment of the mA and/or kV according to patient size 3. Use of iterative reconstruction technique Findings: Examination is limited secondary to motion. No definite acute fracture is identified. Bilateral orbits and orbital contents appear grossly intact. There is mild right maxillary sinus disease.. Impression: 1. Limited examination. 2. Mild right maxillary sinus disease. 3. No convincing acute fracture identified. Electronically signed by: Bacilio Harmon MD (09/18/2017 10:22 PM) [facility]
[2017-09-18 22:27] LABS: AMPHETAMINE/METHAMPHETAMINE NEG (NEG)
[2017-09-18 22:54] LABS: ALK PHOS 121 U/L (46-116); ALT (SGPT) 48 U/L (14-59); ANION GAP 12 (6-14); AST (SGOT) 24 U/L (15-37); BLOOD UREA NITROGEN 15 mg/dL (7-20); CALCIUM 9.3 mg/dL (8.5-10.1); CARBON DIOXIDE 25 mmol/L (21-32); CHLORIDE 106 mmol/L (98-107); CREATINE KINASE 57 U/L (26-192); CREATININE 0.8 mg/dL (0.6-1.0); DIRECT BILIRUBIN 0.1 mg/dL (0.0-0.2); GFR 91.4; GLUCOSE 80 mg/dL (70-99); LIPASE 209 U/L (73-393); MAGNESIUM 2.1 mg/dL (1.8-2.4); POTASSIUM 3.7 mmol/L (3.5-5.1); SODIUM 143 mmol/L (136-145); TOTAL BILIRUBIN 0.1 mg/dL (0.2-1.0); TOTAL PROTEIN 8.2 g/dL (6.4-8.2)
[2017-09-18 22:59] LABS: INFLUENZA A PATIENT NEGATIVE (NEGATIVE); INFLUENZA B PATIENT NEGATIVE (NEGATIVE)
[2017-09-18] MEDS ORDERED: FERR-26 PO (23:22)
[2017-09-18] MEDS ORDERED: FLUT9.9S NS (23:22)
[2017-09-18] MEDS ORDERED: AMOX500C PO (23:22)
[2017-09-18] MEDS ORDERED: cefTRIAXone IV Push 1 GM VIAL. IVP ONE (23:30)
[2017-09-18 23:37] LABS: SEDIMENTATION RATE 9 (0-25)
--- NOTE | 2017-09-18 23:43 | EKG ---
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
[2017-09-18 23:46] LABS: BACTERIA,URINE 0 /HPF (0-FEW); BILIRUBIN,URINE NEG (NEG); CLARITY,URINE CLEAR; COLOR,URINE YELLOW; GLUCOSE,URINE NEG (NEG); NITRITE,URINE NEG (NEG); RBC,URINE 0 /HPF (0-2); SQUAMOUS EPITHELIAL CELL,UR OCC /LPF; UROBILINOGEN,URINE 0.2 mg/dL (0.2 mg/dL); WBC,URINE 0 /HPF (0-4)
[2017-09-19 00:13] LABS: HYPOCHROMIA SLIGHT; MICROCYTOSIS SLIGHT; PLT ESTIMATE INCREASED (ADEQUATE)
[2017-09-19 00:20] VITALS: BP 106/54
--- NOTE | 2017-09-19 08:00 | RAD ---
Chest, 2 views, 09/18/2017: History: Chest pain The heart size is normal. No pulmonary infiltrates are seen. There is no evidence of pleural fluid. IMPRESSION: No acute cardiopulmonary abnormality is detected.
== END 2017-09-19 00:25 | disposition home or self-care (01) ==
LOC: ER 20:37
DX: J32.0 Chronic maxillary sinusitis (principal); D72.829 Elevated white blood cell count, unspecified; D50.9 Iron deficiency anemia, unspecified; G43.909 Migraine, unspecified, not intractable, without status migrainosus; J45.909 Unspecified asthma, uncomplicated
CPT/HCPCS: 36415; 70450; 70486; 71046; 80048; 80076; 80307; 81001; 82553; 83690; 83735; 83880; 84443; 84484; 85025; 85379; 85610; 85651; 85730; 87070; 87804; 87880; 93005; 96361; 96374; 99285; J0696; G0479; J7030

== ENCOUNTER 2017-09-22 02:34 | Emergency (ER) | payer OTHER ==
[~2017-09-22] VITALS: Ht 160 cm; Wt 85.3 kg
[~2017-09-22 02:34] MED LIST changes: +AMOX500C PO; +FERR-26 PO; +FLUT9.9S NS
--- NOTE | 2017-09-22 02:53 | ED.ADGEN ---
Past History Past Medical History: Asthma, Migraines Past Surgical History: No Surgical History Alcohol Use: None Drug Use: None Adult General Chief Complaint Chief Complaint " I ve got a lot of vaginal bleeding..".." I passed this clot thing.." HPI HPI Patient is a 21 year old female who presents with above hx and complaints of dysfunctional bleeding. Pt. has been on depo, but had excessive vaginal bleeding today with clots. Pt. denies travel, ill contacts or trauma. Pt. has had 6 life time sexual partners. No hx of STD. Pt. recent vaginal delivery. Pt. follow at [facility] for care. Review of Systems Review of Systems Constitutional: Denies fever or chills [] Eyes: Denies change in visual acuity, redness, or eye pain [] HENT: Denies nasal congestion or sore throat [] Respiratory: Denies cough or shortness of breath [] Cardiovascular: No additional information not addressed in HPI [] GI: Denies abdominal pain, nausea, vomiting, bloody stools or diarrhea [] : Denies dysuria or hematuria [] Complaints of excessive vaginal bleeding Musculoskeletal: Denies back pain or joint pain [] Integument: Denies rash or skin lesions [] Neurologic: Denies headache, focal weakness or sensory changes [] Endocrine: Denies polyuria or polydipsia [] All other systems were reviewed and found to be within normal limits, except as documented in this note. Family History Family History Non-contributory Current Medications Current Medications Current Medications Medications (Trade) Dose Ordered Sig/Silva Start Time Stop Time Status Last Admin Dose Admin Cephalexin HCl (Keflex) 250 mg 1X ONCE 09/22/17 06:00 09/22/17 06:01 DC 09/22/17 05:35 250 MG Sodium Chloride 1,000 ml @ 1,000 mls/hr Q1H 09/22/17 03:30 09/22/17 04:29 DC 09/22/17 03:35 1,000 MLS/HR See Nursing for home meds Allergies Allergies Allergies Coded Allergies Type Severity Reaction Last Updated Verified No Known Drug Allergies 08/15/17 No Physical Exam Physical Exam Constitutional:, well nourished, no acute distress, non-toxic appearance. [] HENT: Normocephalic, atraumatic, bilateral external ears normal, oropharynx moist, no oral exudates, nose normal. [] Eyes: PERRLA, EOMI, conjunctiva normal, no discharge. [] Neck: Normal range of motion, no tenderness, supple, no stridor. [] Cardiovascular:Heart rate regular rhythm, no murmur [] Lungs & Thorax: Bilateral breath sounds clear to auscultation [] Abdomen: Bowel sounds normal, soft, no tenderness, no masses, no pulsatile masses. Bleeding from Os. No cervical motion tenderness. Rectal hard stool. Skin: Warm, dry, no erythema, no rash. [] No Petechia Back: No tenderness, no CVA tenderness. [] Extremities: No tenderness, no cyanosis, no clubbing, ROM intact, no edema. [] Neurologic: Alert and oriented X 3, normal motor function, normal sensory function, no focal deficits noted. [] Psychologic: Affect anxious, judgement normal, mood normal. [] Current Patient Data Vital Signs Vital Signs Date Time Temp Pulse Resp B/P (MAP) Pulse Ox O2 Delivery O2 Flow Rate FiO2 09/22/17 05:41 88 16 125/75 (92) 99 Room Air 09/22/17 02:40 98.3 Lab Results Laboratory Tests Test 09/22/17 04:00 White Blood Count 10.1 x10^3/uL (4.0-11.0) Red Blood Count 5.76 x10^6/uL (3.50-5.40) H Hemoglobin 12.7 g/dL (12.0-15.5) Hematocrit 39.8 % (36.0-47.0) Mean Corpuscular Volume 69 fL (79-100) L Mean Corpuscular Hemoglobin 22 pg (25-35) L Mean Corpuscular Hemoglobin Concent 32 g/dL (31-37) Red Cell Distribution Width 15.9 % (11.5-14.5) H Platelet Count 395 x10^3/uL (140-400) Neutrophils (%) (Auto) 57 % (31-73) Lymphocytes (%) (Auto) 35 % (24-48) Monocytes (%) (Auto) 8 % (0-9) Eosinophils (%) (Auto) 0 % (0-3) Basophils (%) (Auto) 1 % (0-3) Neutrophils # (Auto) 5.7 x10^3uL (1.8-7.7) Lymphocytes # (Auto) 3.5 x10^3/uL (1.0-4.8) Monocytes # (Auto) 0.8 x10^3/uL (0.0-1.1) Eosinophils # (Auto) 0.0 x10^3/uL (0.0-0.7) Basophils # (Auto) 0.1 x10^3/uL (0.0-0.2) Platelet Estimate Adequate (ADEQUATE) Hypochromasia Slight Microcytosis Mod Ovalocytes Occ Prothrombin Time 10.5 SEC (9.4-11.4) Prothrombin Time INR 1.0 (0.9-1.1) Urine Collection Type Unknown Urine Color Yellow Urine Clarity Hazy Urine pH 5.5 Urine Specific [place] 1.025 Urine Protein 30 mg/dl (NEG-TRACE) Urine Glucose (UA) Neg mg/dL (NEG) Urine Ketones (Stick) Trace mg/dL (NEG) Urine Blood Large (NEG) Urine Nitrite Neg (NEG) Urine Bilirubin Neg (NEG) Urine Urobilinogen Dipstick 0.2 mg/dL (0.2 mg/dL) Urine Leukocyte Esterase Neg (NEG) Urine RBC >40 /HPF (0-2) Urine WBC Occ /HPF (0-4) Urine Squamous Epithelial Cells Few /LPF Urine Bacteria Mod /HPF (0-FEW) Urine Mucus Slight /LPF Maternal Serum HCG Beta Subunit < 1 mIU/mL (0-6) Sodium Level 141 mmol/L (136-145) Potassium Level 4.0 mmol/L (3.5-5.1) Chloride Level 104 mmol/L (98-107) Carbon Dioxide Level 26 mmol/L (21-32) Anion Gap 11 (6-14) Blood Urea Nitrogen 12 mg/dL (7-20) Creatinine 0.7 mg/dL (0.6-1.0) Estimated GFR (Cockcroft-Gault) 106.7 Glucose Level 94 mg/dL (70-99) Calcium Level 8.9 mg/dL (8.5-10.1) Total Bilirubin 0.3 mg/dL (0.2-1.0) Direct Bilirubin 0.1 mg/dL (0.0-0.2) Aspartate Amino Transferase (AST) 25 U/L (15-37) Alanine Aminotransferase (ALT) 46 U/L (14-59) Alkaline Phosphatase 126 U/L (46-116) H Total Protein 7.9 g/dL (6.4-8.2) Albumin 3.9 g/dL (3.4-5.0) Microbiology 09/22/17 Wet Prep - Final, Complete Laboratory Tests Test 09/22/17 04:00 White Blood Count 10.1 x10^3/uL (4.0-11.0) Red Blood Count 5.76 x10^6/uL (3.50-5.40) H Hemoglobin 12.7 g/dL (12.0-15.5) Hematocrit 39.8 % (36.0-47.0) Mean Corpuscular Volume 69 fL (79-100) L Mean Corpuscular Hemoglobin 22 pg (25-35) L Mean Corpuscular Hemoglobin Concent 32 g/dL (31-37) Red Cell Distribution Width 15.9 % (11.5-14.5) H Platelet Count 395 x10^3/uL (140-400) Neutrophils (%) (Auto) 57 % (31-73) Lymphocytes (%) (Auto) 35 % (24-48) Monocytes (%) (Auto) 8 % (0-9) Eosinophils (%) (Auto) 0 % (0-3) Basophils (%) (Auto) 1 % (0-3) Neutrophils # (Auto) 5.7 x10^3uL (1.8-7.7) Lymphocytes # (Auto) 3.5 x10^3/uL (1.0-4.8) Monocytes # (Auto) 0.8 x10^3/uL (0.0-1.1) Eosinophils # (Auto) 0.0 x10^3/uL (0.0-0.7) Basophils # (Auto) 0.1 x10^3/uL (0.0-0.2) Platelet Estimate Adequate (ADEQUATE) Hypochromasia Slight Microcytosis Mod Ovalocytes Occ Prothrombin Time 10.5 SEC (9.4-11.4) Prothrombin Time INR 1.0 (0.9-1.1) Urine Collection Type Unknown Urine Color Yellow Urine Clarity Hazy Urine pH 5.5 Urine Specific [place] 1.025 Urine Protein 30 mg/dl (NEG-TRACE) Urine Glucose (UA) Neg mg/dL (NEG) Urine Ketones (Stick) Trace mg/dL (NEG) Urine Blood Large (NEG) Urine Nitrite Neg (NEG) Urine Bilirubin Neg (NEG) Urine Urobilinogen Dipstick 0.2 mg/dL (0.2 mg/dL) Urine Leukocyte Esterase Neg (NEG) Urine RBC >40 /HPF (0-2) Urine WBC Occ /HPF (0-4) Urine Squamous Epithelial Cells Few /LPF Urine Bacteria Mod /HPF (0-FEW) Urine Mucus Slight /LPF Maternal Serum HCG Beta Subunit < 1 mIU/mL (0-6) Sodium Level 141 mmol/L (136-145) Potassium Level 4.0 mmol/L (3.5-5.1) Chloride Level 104 mmol/L (98-107) Carbon Dioxide Level 26 mmol/L (21-32) Anion Gap 11 (6-14) Blood Urea Nitrogen 12 mg/dL (7-20) Creatinine 0.7 mg/dL (0.6-1.0) Estimated GFR (Cockcroft-Gault) 106.7 Glucose Level 94 mg/dL (70-99) Calcium Level 8.9 mg/dL (8.5-10.1) Total Bilirubin 0.3 mg/dL (0.2-1.0) Direct Bilirubin 0.1 mg/dL (0.0-0.2) Aspartate Amino Transferase (AST) 25 U/L (15-37) Alanine Aminotransferase (ALT) 46 U/L (14-59) Alkaline Phosphatase 126 U/L (46-116) H Total Protein 7.9 g/dL (6.4-8.2) Albumin 3.9 g/dL (3.4-5.0) Microbiology 09/22/17 Wet Prep - Final, Complete EKG EKG [] Radiology/Procedures Radiology/Procedures [] Course & Med Decision Making Course & Med Decision Making Pertinent Labs and Imaging studies reviewed. (See chart for details) Continue pad and Tampon counts. Follow up cultures taken here. Take Keflex 500 mg 3 times a day. Take a daily multivitamin [] Final Impression Final Impression 1. Dysfunctional Uterine Bleeding[] 2. Bacterial vaginosis Problems: Dragon Disclaimer Dragon Disclaimer This electronic medical record was generated, in whole or in part, using a voice recognition dictation system. GUERITA HALL MD Sep 22, 2017 02:53
[2017-09-22] MEDS ORDERED: IV NORMAL SALINE 1,000ML 1,000 ML IV SCH (03:30)
[2017-09-22 04:38] LABS: BASO # 0.1 x10^3/uL (0.0-0.2); BASO % 1 % (0-3); EOS % 0 % (0-3); HEMATOCRIT 39.8 % (36.0-47.0); HEMOGLOBIN 12.7 g/dL (12.0-15.5); LYMPH # 3.5 x10^3/uL (1.0-4.8); LYMPH % 35 % (24-48); MEAN CORPUSCULAR HEMOGLOBIN 22 pg (25-35); MEAN CORPUSCULAR HGB CONC 32 g/dL (31-37); MEAN CORPUSCULAR VOLUME 69 fL (79-100); MONO # 0.8 x10^3/uL (0.0-1.1); MONO % 8 % (0-9); NEUT # 5.7 x10^3uL (1.8-7.7); NEUT % 57 % (31-73); PLATELET COUNT 395 x10^3/uL (140-400); RED BLOOD COUNT 5.76 x10^6/uL (3.50-5.40); RED CELL DISTRIBUTION WIDTH 15.9 % (11.5-14.5); WHITE BLOOD COUNT 10.1 x10^3/uL (4.0-11.0)
[2017-09-22 04:44] LABS: ALBUMIN 3.9 g/dL (3.4-5.0); CALCIUM 8.9 mg/dL (8.5-10.1); CREATININE 0.7 mg/dL (0.6-1.0); DIRECT BILIRUBIN 0.1 mg/dL (0.0-0.2); GFR 106.7; TOTAL BILIRUBIN 0.3 mg/dL (0.2-1.0); TOTAL PROTEIN 7.9 g/dL (6.4-8.2)
[2017-09-22 04:48] LABS: BILIRUBIN,URINE NEG (NEG); CLARITY,URINE HAZY; COLOR,URINE YELLOW; GLUCOSE,URINE NEG (NEG)
[2017-09-22 04:49] LABS: NITRITE,URINE NEG (NEG); UROBILINOGEN,URINE 0.2 mg/dL (0.2 mg/dL)
[2017-09-22 04:50] LABS: BACTERIA,URINE MOD /HPF (0-FEW); RBC,URINE >40 /HPF (0-2); SQUAMOUS EPITHELIAL CELL,UR FEW /LPF; WBC,URINE OCC /HPF (0-4)
[2017-09-22] MEDS ORDERED: CEPH-264 PO (05:08)
[2017-09-22] MEDS ORDERED: CEPHALEXIN 250 MG CAPSULE PO ONE ×2 (05:30→06:00)
[2017-09-22 05:41] VITALS: BP 125/75
[2017-09-22 06:52] LABS: HYPOCHROMIA SLIGHT; MICROCYTOSIS MOD; OVALOCYTES OCC; PLT ESTIMATE ADEQUATE (ADEQUATE)
--- NOTE | 2017-09-25 14:12 | PATHOLOGY ---
PATHOLOGY REPORT * * * * * * * * FINAL DIAGNOSIS: Vaginal discharge: - Decidual cast showing focal hemorrhage and acute inflammation. (JPM:da; 09/25/2017) COMMENT: The entire specimen is submitted for histologic evaluation. Microscopic sections show a decidual cast with focal hemorrhage and acute inflammation. The findings are consistent with progesterone effect. There are no chorionic villi or tissues identified. (JPM:da; 09/25/2017) REPORT ELECTRONICALLY SIGNED BY: Tan Beltran M.D. DATE/TIME: 09/25/2017 14:11 * * * * * * * * GROSS PATHOLOGY: The specimen is received in formalin, labeled "Marilyn Kent, spontaneous vaginal clot discharge," and consists of a segment of quintana-brown soft tissue measuring 5.8 x 2.2 x 0.6 cm. It is entirely submitted in cassettes A1-A4. (SDY; 09/24/2017) INITIAL CPT CODE(S): A; 27755 Professional services performed [place] [facility] [place] [address] Technical services performed by [facility] at [address] [place] [address] [address] [address]. Evette fax: SPECIMEN(S) RECEIVED: A.Spontaneous vaginal clot discharge CLINICAL HISTORY: Vaginal bleeding, history of vaginal bleeding; Patient is a 21 year old female who presents with above hx and complaints of dysfunctional bleeding. Pt. has been on depo, but had excessive vaginal bleeding today with clots. PATIENT: MARILYN KENT /AGE: 3 1995 (Age: 21) PATIENT #: [id number] ALT CASE #: SPECIMEN COLLECTION DATE: 09/22/2017 SPECIMEN RECEIVED DATE: 09/24/2017 [facility] - [address] [place] [address] - PHONE: [phone] * * * END OF REPORT * * *
== END 2017-09-22 05:41 | disposition home or self-care (01) ==
LOC: ER 02:34
DX: N93.8 Other specified abnormal uterine and vaginal bleeding (principal); N76.0 Acute vaginitis; B96.89 Other specified bacterial agents as the cause of diseases classified elsewhere; J45.909 Unspecified asthma, uncomplicated; G43.909 Migraine, unspecified, not intractable, without status migrainosus
CPT/HCPCS: 80048; 80076; 81001; 84702; 85025; 85610; 87086; 88305; 96360; 99284; Q0111; J7030